=== PATIENT | male | born 1955 | race American Indian/Alaskan Native ===

== ENCOUNTER 2019-10-26 14:06 | Emergency (ER) | payer MEDICARE ==
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
[2019-10-26] MEDS ORDERED: TETANUS,DIPH,PERTUSS(ACELL) VACCINE 0.5 ML SYRINGE IM ONE (15:13)
[2019-10-26] MEDS ORDERED: LIDOCAINE (1%) 10 MG/1 ML VIAL 20 ML MDV INFILTRATI ONE (15:13)
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
[2019-10-26] MEDS ORDERED: NEOMY 3.5 MG/BACIT 400 UNITS/POLY B 5000 UNITS/GM OINT PACKET TP ONE (16:07)
[2019-10-26 16:22] VITALS: BP 147/96
[2019-10-26] MEDS ORDERED: BACITRACIN ZINC OINT 28.4 GM TP ONE (17:02)
== END 2019-10-26 16:27 | disposition home or self-care (01) ==
LOC: ED 14:06
DX: S01.21XA Laceration without foreign body of nose, initial encounter (principal); W51.XXXA Accidental striking against or bumped into by another person, initial encounter; Y93.89 Activity, other specified; Y92.89 Other specified places as the place of occurrence of the external cause; Y99.8 Other external cause status
CPT/HCPCS: 70150; 90471; 90715; A6250